=== PATIENT | female | born 1970 | race Caucasian/White ===

== ENCOUNTER → 2017-11-22 09:56 | Outpatient (POV) | payer OTHER, SELFPAY ==
[2017-11-22 10:17] VITALS: BP 129/100; PULSE 80; RESP 20; TEMP 36.7; O2SAT 94; BMI 20.7
--- NOTE | 2017-11-22 11:50 | HMH.PAINSOAP ---
[facility] Pain Management SOAP Note Subjective:: This patient is a very pleasant 47-year-old white female who presents today to discuss a possible lumbar epidural steroid injection. Patient has had these in the past with up to 75% relief lasting for several months. Patient states that the pain has now returned since her last injection in August. She describes her pain as constant, dull, achy. States that the pain radiates into both legs at times. She rates her pain a 6 out of 10 today. Patient states that at this time she is controlling her pain with limited movement and pain medication she receives from her primary care physician. The patient had a trial of gabapentin and stated it did nothing for her and would like to not continue it. Patient wishing for a lumbar epidural steroid injection. Objective:: Physical Exam General: Alert and oriented x3, no acute distress, pleasant and cooperative, [on room air] Lungs: Resps E/U, Symmetrical chest expansion Musculoskeletal: Flexion and extension of lumbar spine somewhat guarded secondary to pain, deep tendon reflexes normal, strength in upper and lower extremities [5/5], slightly antalgic gait noted Neurological: speech clear, curriculum advisory teacher equal, no gross sensory deficits Assessment:: Degenerative disc disease lumbar spine multilevels, lumbar radiculopathy symptoms. Plan:: We will plan a lumbar epidural steroid injection at L4-L5 level. Patient has had these in the past with excellent results. Patient has been up to 75% relieved the pain for several months after these injections. Patient has tried and failed conservative therapies including medications and physical therapy. I discussed the risks and benefits of this injection. She wishes to proceed with scheduling it. This note was dictated using voice recognition software and may include errors and omissions
--- NOTE | 2017-11-22 11:54 | P.CONS_ITS ---
[facility] Pain Management SOAP Note Subjective:: This patient is a very pleasant 47-year-old white female who presents today to discuss a possible lumbar epidural steroid injection. Patient has had these in the past with up to 75% relief lasting for several months. Patient states that the pain has now returned since her last injection in August. She describes her pain as constant, dull, achy. States that the pain radiates into both legs at times. She rates her pain a 6 out of 10 today. Patient states that at this time she is controlling her pain with limited movement and pain medication she receives from her primary care physician. The patient had a trial of gabapentin and stated it did nothing for her and would like to not continue it. Patient wishing for a lumbar epidural steroid injection. Objective:: Physical Exam General: Alert and oriented x3, no acute distress, pleasant and cooperative, [ on room air] Lungs: Resps E/U, Symmetrical chest expansion Musculoskeletal: Flexion and extension of lumbar spine somewhat guarded secondary to pain, deep tendon reflexes normal, strength in upper and lower extremities [5/5], slightly antalgic gait noted Neurological: speech clear, desizing machine operator head end equal, no gross sensory deficits Assessment:: Degenerative disc disease lumbar spine multilevels, lumbar radiculopathy symptoms. Plan:: We will plan a lumbar epidural steroid injection at L4-L5 level. Patient has had these in the past with excellent results. Patient has been up to 75% relieved the pain for several months after these injections. Patient has tried and failed conservative therapies including medications and physical therapy. I discussed the risks and benefits of this injection. She wishes to proceed with scheduling it. This note was dictated using voice recognition software and may include errors and omissions
== END ==
PROVIDERS: Family Provider Family Medicine; PCP Family Medicine; Visit Provider Clinical Nurse Specialist Family Health
DX: M54.16 Radiculopathy, lumbar region (principal)
CPT/HCPCS: 99212

== ENCOUNTER 2017-12-17 10:21 | Day surgery (SDC) | payer OTHER, SELFPAY ==
[2017-12-17 11:00] VITALS: BP 105/61; PULSE 65; RESP 18; TEMP 36.4; O2SAT 100; BMI 20.9
--- NOTE | 2017-12-17 11:40 | HMH.PMPROC ---
- Procedure Date: 12/17/17 Time: 11:40 Anesthesiologist:: Vlad Hernadez MD Complications:: None Pre-procedure Diagnosis:: Degenerative disc disease of lumbar spine multiple levels with lumbar radiculopathy symptoms Post-procedure Diagnosis:: Same Indications for Procedure:: This patient is a pleasant 47-year-old white female who we are treating for low back pain with lumbar radiculopathy symptoms. She has had up to 75% 80% relief in pain symptoms with previous lumbar epidurals steroid Injections. Her pain is starting to return in her back and down both legs. We will do a repeat lumbar epidural steroid injection today. Patient did trial gabapentin without any relief. Procedure Details:: Lumbar epidural steroid injection. Informed consent was obtained and the risk and benefits of the procedure was explained to the patient. The patient was taken to the procedure room. The patient was placed prone on the procedure table. The patient was prepped and draped in sterile fashion. C-arm fluoroscopy was used to view the lumbar spine. Skin and subcutaneous tissues were anesthetized using lidocaine. I placed an 18-gauge epidural needle and advanced into the L4-L5 interspace using fluoroscopic guidance and [id number] to air. After confirmation of needle placement in the epidural space with dye I injected 2 mL of lidocaine 1.5% with Depo-Medrol 80 mg. Patient tolerated the procedure well with no complications. Plan and Disposition:: We will follow-up with this patient in 2 weeks. We will reevaluate her symptoms at that time
[2017-12-17 11:43] VITALS: BP 122/54; PULSE 88; RESP 20
[2017-12-17 11:44] VITALS: BP 122/60; PULSE 85; RESP 20
--- NOTE | 2017-12-17 11:46 | P.PCN_ITS ---
- Procedure Date: 12/17/17 Time: 11:40 Anesthesiologist:: Vlad Hernadez MD Complications:: None Pre-procedure Diagnosis:: Degenerative disc disease of lumbar spine multiple levels with lumbar radiculopathy symptoms Post-procedure Diagnosis:: Same Indications for Procedure:: This patient is a pleasant 47-year-old white female who we are treating for low back pain with lumbar radiculopathy symptoms. She has had up to 75% 80% relief in pain symptoms with previous lumbar epidurals steroid Injections. Her pain is starting to return in her back and down both legs. We will do a repeat lumbar epidural steroid injection today. Patient did trial gabapentin without any relief. Procedure Details:: Lumbar epidural steroid injection. Informed consent was obtained and the risk and benefits of the procedure was explained to the patient. The patient was taken to the procedure room. The patient was placed prone on the procedure table. The patient was prepped and draped in sterile fashion. C-arm fluoroscopy was used to view the lumbar spine. Skin and subcutaneous tissues were anesthetized using lidocaine. I placed an 18-gauge epidural needle and advanced into the L4-L5 interspace using fluoroscopic guidance and [id number] to air. After confirmation of needle placement in the epidural space with dye I injected 2 mL of lidocaine 1.5 % with Depo-Medrol 80 mg. Patient tolerated the procedure well with no complications. Plan and Disposition:: We will follow-up with this patient in 2 weeks. We will reevaluate her symptoms at that time
[2017-12-17 11:49] VITALS: BP 116/69; PULSE 79; O2SAT 99
== END 2017-12-17 11:50 | disposition home or self-care (01) ==
LOC: SC.PAINP 10:23
PROVIDERS: Family Provider Family Medicine; PCP Family Medicine; Visit Provider Anesthesiology
DX: M51.16 Intervertebral disc disorders with radiculopathy, lumbar region (principal)
CPT/HCPCS: 62323; J1040; Q9966

== ENCOUNTER → 2018-02-01 11:33 | Outpatient (POV) | payer OTHER, SELFPAY ==
[2018-02-01 11:57] VITALS: BP 111/85; PULSE 94; RESP 20; TEMP 36.7; O2SAT 99; BMI 20.5
--- NOTE | 2018-02-01 12:50 | HMH.PAINSOAP ---
[facility] Pain Management SOAP Note Subjective:: Patient is a pleasant 47-year-old white female who presents today for follow-up after lumbar epidural steroid injection. Patient states she gets 80% relief of her back pain after these injections. Patient is still having some relief however she is having some numbness in her feet and hands. Patient would like to do one more injection. Patient has trialed gabapentin without any relief. Patient and I talked about neuromodulation. I gave her information on neuro stimulation. Patient had been talked about the pain pump previously however she is more interested in potentially a neurostimulator. States that her back pain is worse than her neck pain at this time. She rates an 8 out of 10. ROS General: no recent weight change, no fever, no sleep disturbances Respiratory: no cough, no shortness of air, no recurring pulmonary infections Cardiovascular/Peripheral Vascular: No chest pain, No palpitations, no edema, no shortness of breath. Gastrointestinal: no incontinence, normal bowel movements reported Genitourinary: no incontinence Musculoskeletal: Back pain, bilateral leg pain, neck pain, bilateral arm pain Psychiatric: normal mood/ affect Neurological: [denies weakness in extremities], [denies balance issues] Objective:: Physical Exam General: Alert and oriented x3, no acute distress, pleasant and cooperative, [on room air] Lungs: Resps E/U, Symmetrical chest expansion, Eyes: PERRL Musculoskeletal: Flexion and extension of cervical and lumbar spine somewhat guarded secondary to pain, deep tendon reflexes normal, strength in upper and lower extremities [5/5], [abnormal gait noted] positive straight leg test bilaterally at 30? Neurological: speech clear, laser technician equal, no gross sensory deficits Assessment:: Generative disc disease of the lumbar spine with lumbar radiculopathy, degenerative disc disease of the cervical spine with cervical radiculopathy. Plan:: Patient took information on neuromodulation home. We will set the patient up for another L4-L5 lumbar epidural steroid injection in several weeks. Patient receives good relief for several months with these injections. Patient's tried and failed medications, anti-inflammatories, physical therapy. I will also order a compounded cream to help with the numbness and tingling in her feet and hands. This note was dictated using voice recognition software and may contain errors or omissions
--- NOTE | 2018-02-01 12:55 | P.CONS_ITS ---
[facility] Pain Management SOAP Note Subjective:: Patient is a pleasant 47-year-old white female who presents today for follow-up after lumbar epidural steroid injection. Patient states she gets 80% relief of her back pain after these injections. Patient is still having some relief however she is having some numbness in her feet and hands. Patient would like to do one more injection. Patient has trialed gabapentin without any relief. Patient and I talked about neuromodulation. I gave her information on neuro stimulation. Patient had been talked about the pain pump previously however she is more interested in potentially a neurostimulator. States that her back pain is worse than her neck pain at this time. She rates an 8 out of 10. ROS General: no recent weight change, no fever, no sleep disturbances Respiratory: no cough, no shortness of air, no recurring pulmonary infections Cardiovascular/Peripheral Vascular: No chest pain, No palpitations, no edema, no shortness of breath. Gastrointestinal: no incontinence, normal bowel movements reported Genitourinary: no incontinence Musculoskeletal: Back pain, bilateral leg pain, neck pain, bilateral arm pain Psychiatric: normal mood/ affect Neurological: [denies weakness in extremities], [denies balance issues] Objective:: Physical Exam General: Alert and oriented x3, no acute distress, pleasant and cooperative, [ on room air] Lungs: Resps E/U, Symmetrical chest expansion, Eyes: PERRL Musculoskeletal: Flexion and extension of cervical and lumbar spine somewhat guarded secondary to pain, deep tendon reflexes normal, strength in upper and lower extremities [5/5], [abnormal gait noted] positive straight leg test bilaterally at 30? Neurological: speech clear, mold stamper and repairer equal, no gross sensory deficits Assessment:: Generative disc disease of the lumbar spine with lumbar radiculopathy, degenerative disc disease of the cervical spine with cervical radiculopathy. Plan:: Patient took information on neuromodulation home. We will set the patient up for another L4-L5 lumbar epidural steroid injection in several weeks. Patient receives good relief for several months with these injections. Patient's tried and failed medications, anti-inflammatories, physical therapy. I will also order a compounded cream to help with the numbness and tingling in her feet and hands. This note was dictated using voice recognition software and may contain errors or omissions
== END ==
PROVIDERS: Family Provider Family Medicine; PCP Family Medicine; Visit Provider Clinical Nurse Specialist Family Health
DX: M54.12 Radiculopathy, cervical region (principal); M54.16 Radiculopathy, lumbar region
CPT/HCPCS: 99212

== ENCOUNTER → 2018-04-25 13:18 | Outpatient (POV) | payer OTHER, SELFPAY ==
[2018-04-25 13:37] VITALS: BP 114/69; PULSE 78; RESP 18; O2SAT 98; BMI 19.7
--- NOTE | 2018-04-25 13:42 | HMH.PAINSOAP ---
[facility] Pain Management SOAP Note Subjective:: Patient is a pleasant 47-year-old female who presents today for follow-up after lumbar epidural steroid injection. Patient states she got 80% relief with her last injection. She rates her pain a 7 out of 10 she states she has continuous numbness in her hands and her feet. Patient was talked to by Dr. Hernadez and myself about neuro stimulation however she states if it is not broken do not fix it . Patient states that she does not want to move forward with a neurostimulator trial. Patient would like to continue getting injections. Patient and I discussed limiting these to every 3 months if possible. Patient states she cannot wait 3 months. Patient does receive medications from her primary care. Patient tried a compounding cream without much relief. ROS General: no recent weight change, no fever, no sleep disturbances Respiratory: no cough, no shortness of air, no recurring pulmonary infections Cardiovascular/Peripheral Vascular: No chest pain, No palpitations, no edema, no shortness of breath. Gastrointestinal: no incontinence, normal bowel movements reported Genitourinary: no incontinence Musculoskeletal: Back pain, leg pain Psychiatric: normal mood/ affect Neurological: [denies weakness in extremities], [denies balance issues] Objective:: Weight on dictating things what the food is going on Physical Exam General: Alert and oriented x3, no acute distress, pleasant and cooperative, [on room air] Lungs: Resps E/U, Symmetrical chest expansion Eyes: PERRL Musculoskeletal: Flexion and extension of lumbar spine somewhat guarded secondary to pain, deep tendon reflexes normal, strength in upper and lower extremities [5/5], slightly antalgic gait noted, straight leg raise test positive bilaterally at 30? Neurological: speech clear, supervisor photoengraving equal, no gross sensory deficits Assessment:: Degenerative disc disease of the lumbar spine with lumbar radiculopathy Plan:: We will schedule a L4-L5 lumbar epidural steroid injection for the patient. Patient states that she gets quite a lot of relief from this and her functionality is improved. Patient is not interested in nerve stimulation. Patient would like to continue getting epidural steroid injections at this time. Patient states that she believes that when her insurance approves a steroid injection she is able to have as many as she would like during the 3 month period of approval I tried to discuss this with the patient and explained that that is not the case. I encouraged her to call her insurance company to clarify. Patient is not on any anticoagulation. This note was dictated using voice recognition software and may contain errors or omissions
--- NOTE | 2018-04-25 13:46 | P.CONS_ITS ---
[facility] Pain Management SOAP Note Subjective:: Patient is a pleasant 47-year-old female who presents today for follow-up after lumbar epidural steroid injection. Patient states she got 80% relief with her last injection. She rates her pain a 7 out of 10 she states she has continuous numbness in her hands and her feet. Patient was talked to by Dr. Hernadez and myself about neuro stimulation however she states if it is not broken do not fix it . Patient states that she does not want to move forward with a neurostimulator trial. Patient would like to continue getting injections. Patient and I discussed limiting these to every 3 months if possible. Patient states she cannot wait 3 months. Patient does receive medications from her primary care. Patient tried a compounding cream without much relief. ROS General: no recent weight change, no fever, no sleep disturbances Respiratory: no cough, no shortness of air, no recurring pulmonary infections Cardiovascular/Peripheral Vascular: No chest pain, No palpitations, no edema, no shortness of breath. Gastrointestinal: no incontinence, normal bowel movements reported Genitourinary: no incontinence Musculoskeletal: Back pain, leg pain Psychiatric: normal mood/ affect Neurological: [denies weakness in extremities], [denies balance issues] Objective:: Weight on dictating things what the food is going on Physical Exam General: Alert and oriented x3, no acute distress, pleasant and cooperative, [ on room air] Lungs: Resps E/U, Symmetrical chest expansion Eyes: PERRL Musculoskeletal: Flexion and extension of lumbar spine somewhat guarded secondary to pain, deep tendon reflexes normal, strength in upper and lower extremities [5/5], slightly antalgic gait noted, straight leg raise test positive bilaterally at 30? Neurological: speech clear, guard manager equal, no gross sensory deficits Assessment:: Degenerative disc disease of the lumbar spine with lumbar radiculopathy Plan:: We will schedule a L4-L5 lumbar epidural steroid injection for the patient. Patient states that she gets quite a lot of relief from this and her functionality is improved. Patient is not interested in nerve stimulation. Patient would like to continue getting epidural steroid injections at this time. Patient states that she believes that when her insurance approves a steroid injection she is able to have as many as she would like during the 3 month period of approval I tried to discuss this with the patient and explained that that is not the case. I encouraged her to call her insurance company to clarify. Patient is not on any anticoagulation. This note was dictated using voice recognition software and may contain errors or omissions
== END ==
PROVIDERS: Family Provider Family Medicine; PCP Family Medicine; Visit Provider Clinical Nurse Specialist Family Health
DX: M54.16 Radiculopathy, lumbar region (principal)
CPT/HCPCS: 99212

== ENCOUNTER → 2018-06-27 12:05 | Outpatient (POV) | payer OTHER, SELFPAY ==
[2018-06-27 12:11] VITALS: BP 127/75; PULSE 95; RESP 18; BMI 21.4
--- NOTE | 2018-06-27 12:20 | P.CONS_ITS ---
[facility] Pain Management SOAP Note Subjective:: Patient is a pleasant 47-year-old white female who we are treating for low back pain. Patient is doing well after lumbar epidural steroid injection. Patient states most of her pain today is axial in nature. Patient has difficulty with rotating motion. She rates her pain a 7 out of 10 today. Patient does have facet arthropathy noted on her MRI. ROS General: no recent weight change, no fever, no sleep disturbances Respiratory: no cough, no shortness of air, no recurring pulmonary infections Cardiovascular/Peripheral Vascular: No chest pain, No palpitations, no edema, no shortness of breath. Gastrointestinal: no incontinence, normal bowel movements reported Genitourinary: no incontinence Musculoskeletal: Back pain Psychiatric: normal mood/ affect Neurological: [denies weakness in extremities], [denies balance issues] Objective:: Physical Exam General: Alert and oriented x3, no acute distress, pleasant and cooperative, [on room air] Lungs: Resps E/U, Symmetrical chest expansion, Eyes: PERRL Musculoskeletal: Flexion and extension of lumbar spine somewhat guarded secondary to pain, deep tendon reflexes normal, strength in upper and lower extremities [5/5], slightly antalgic gait noted, positive Kemps test of the lumbar spine Neurological: speech clear, weld fitter equal, no gross sensory deficits Assessment:: Facet arthropathy, degenerative disc disease lumbar spine Plan:: We will schedule an L3-L4 L4-L5 L5-S1 facet joint injection bilaterally to determine if this would be beneficial for her. Patient is not on any anticoagulation therapy. Patient is continuing her home stretching exercises. Patient had and failed anti-inflammatories. This note was dictated using voice recognition software and may contain errors or omissions
== END ==
PROVIDERS: Family Provider Family Medicine; PCP Family Medicine; Visit Provider Clinical Nurse Specialist Family Health
DX: M51.36 Other intervertebral disc degeneration, lumbar region (principal); M54.06 Panniculitis affecting regions of neck and back, lumbar region
CPT/HCPCS: 99213

== ENCOUNTER → 2018-10-10 10:55 | Outpatient (POV) | payer OTHER, SELFPAY ==
[2018-10-10 11:23] VITALS: BP 117/68; PULSE 96; RESP 18; O2SAT 98; BMI 20.2
--- NOTE | 2018-10-10 11:41 | HMH.PAINSOAP ---
[facility] Pain Management SOAP Note Subjective:: Patient is a pleasant 48-year-old white female who presents today for follow-up. Patient has had 3 weeks of continual neck pain which is now radiated into her left arm and causing her to have weakness. Patient is unable to grasp things at times. She rates her pain an 8 out of 10. She is also having low back pain. Patient has had good relief with epidural injections in the past. She would like to retry this. ROS General: no recent weight change, no fever, no sleep disturbances Respiratory: no cough, no shortness of air, no recurring pulmonary infections Cardiovascular/Peripheral Vascular: No chest pain, No palpitations, no edema, no shortness of breath. Gastrointestinal: no incontinence, normal bowel movements reported Genitourinary: no incontinence Musculoskeletal: Neck pain, back pain Psychiatric: normal mood/ affect Neurological: Weakness in upper left extremity, [denies balance issues] Objective:: Physical Exam General: Alert and oriented x3, no acute distress, pleasant and cooperative, [on room air] Lungs: Resps E/U, Symmetrical chest expansion, Eyes: PERRL Musculoskeletal: Flexion and extension of cervical and lumbar spine somewhat guarded secondary to pain, deep tendon reflexes normal, strength in upper and lower extremities [5/5], slightly antalgic gait noted, positive straight leg raise test bilaterally at 30 degrees Neurological: speech clear, right senior product marketing manager greater than left senior product marketing manager, no gross sensory deficits Assessment:: Degenerative disc disease lumbar spine with lumbar radiculopathy, facet arthropathy, neck pain, degenerative disc disease cervical spine with radiculopathy Plan:: We will schedule an L4-L5 lumbar epidural steroid injection for the patient. Patient has had good relief with these in the past. We will also schedule a cervical MRI to help determine new pathology. I am concerned due to the weakness she has shown in her left arm. I will follow-up with her after this. This note was dictated using voice recognition software and may contain errors or omissions
--- NOTE | 2018-10-10 11:44 | P.CONS_ITS ---
[facility] Pain Management SOAP Note Subjective:: Patient is a pleasant 48-year-old white female who presents today for follow-up. Patient has had 3 weeks of continual neck pain which is now radiated into her left arm and causing her to have weakness. Patient is unable to grasp things at times. She rates her pain an 8 out of 10. She is also having low back pain. Patient has had good relief with epidural injections in the past. She would like to retry this. ROS General: no recent weight change, no fever, no sleep disturbances Respiratory: no cough, no shortness of air, no recurring pulmonary infections Cardiovascular/Peripheral Vascular: No chest pain, No palpitations, no edema, no shortness of breath. Gastrointestinal: no incontinence, normal bowel movements reported Genitourinary: no incontinence Musculoskeletal: Neck pain, back pain Psychiatric: normal mood/ affect Neurological: Weakness in upper left extremity, [denies balance issues] Objective:: Physical Exam General: Alert and oriented x3, no acute distress, pleasant and cooperative, [on room air] Lungs: Resps E/U, Symmetrical chest expansion, Eyes: PERRL Musculoskeletal: Flexion and extension of cervical and lumbar spine somewhat guarded secondary to pain, deep tendon reflexes normal, strength in upper and lower extremities [5/5], slightly antalgic gait noted, positive straight leg raise test bilaterally at 30 degrees Neurological: speech clear, right box spinner greater than left box spinner, no gross sensory deficits Assessment:: Degenerative disc disease lumbar spine with lumbar radiculopathy, facet arthropathy, neck pain, degenerative disc disease cervical spine with radiculopathy Plan:: We will schedule an L4-L5 lumbar epidural steroid injection for the patient. Patient has had good relief with these in the past. We will also schedule a cervical MRI to help determine new pathology. I am concerned due to the weakness she has shown in her left arm. I will follow-up with her after this. This note was dictated using voice recognition software and may contain errors or omissions
== END ==
PROVIDERS: PCP Family Medicine; Visit Provider Clinical Nurse Specialist Family Health
DX: M51.16 Intervertebral disc disorders with radiculopathy, lumbar region (principal); M54.06 Panniculitis affecting regions of neck and back, lumbar region; M50.10 Cervical disc disorder with radiculopathy, unspecified cervical region
CPT/HCPCS: 99213